=== PATIENT | female | born 1990 | race Caucasian/White ===

== ENCOUNTER 2016-06-22 18:17 | Inpatient (IN) | payer OTHER ==
[~2016-06-22] VITALS: Ht 157.5 cm; Wt 67.7 kg
[~2016-06-22 18:17] MED LIST: ETOMIDATE 20 MG INJ ONE; ROCURONIUM 50 MG INJ ONE
[2016-06-22 22:26] VITALS: PULSE 86
[2016-06-22 22:40] VITALS: Ht 157.5 cm; Wt 67.7 kg
[2016-06-22] MEDS ORDERED: DEXTROSE 50% 50 ML SYRINGE ONE (22:49)
[2016-06-22 23:30] VITALS: BP 134/89; PULSE 79; RESP 18
[2016-06-23] VITALS (52 sets, daily range): BP systolic 0–182; BP diastolic 10–122; PULSE 0–142; RESP 12–26
[2016-06-23] MEDS ORDERED: morphine 4 MG/ML VIAL IV PRN (01:00)
[2016-06-23] MEDS ORDERED: ONDANSETRON 4 MG INJ IV PRN ×2 (01:00→09:30)
[2016-06-23] MEDS ORDERED: DEXTROSE 5%-0.9% NACL 1,000 ML IV SCH ×2 (01:00→09:00)
[2016-06-23] MEDS ORDERED: ACETAMINOPHEN 325 MG TAB PO PRN ×2 (01:00→09:30)
[2016-06-23] MEDS ORDERED: DEXTROSE 50% 50 ML SYRINGE ONE (04:18)
[2016-06-23] MEDS ORDERED: LIDOCAINE 1% (MDV) 20 ML INJ SC ONE (06:00)
[2016-06-23] MEDS ORDERED: PANTOPRAZOLE 40 MG INJ IV SCH (06:00)
[2016-06-23] MEDS ORDERED: DEXTROSE 50% 50 ML SYRINGE IV PRN ×3 (06:00→17:30)
[2016-06-23 06:35] LABS: ADD SCAN DIFF NO
[2016-06-23 06:39] LABS: ABNORMAL IP MESSAGE 1; HEMATOCRIT 49.6 % (37.0-47.0); HEMOGLOBIN 15.5 g/dl (12.0-16.0); MEAN CORPUSCULAR HEMOGLOBIN 31.3 pg (29.0-33.0); MEAN CORPUSCULAR HGB CONC 31.3 g/dl (32.0-37.0); MEAN PLATELET VOLUME 9.2 fl (7.4-10.4); RED BLOOD COUNT 4.96 10^6/ul (4.20-5.40); RED CELL DISTRIBUTION WIDTH 12.3 % (11.5-14.5); WHITE BLOOD COUNT 12.2 10^3/ul (4.8-10.8)
[2016-06-23 06:52] LABS: PLATELET COUNT 25 10^3/UL (140-415)
[2016-06-23 07:00] LABS: CALCIUM 7.2 mg/dl (8.4-10.2); CHOL/HDL RATIO 10.6 RATIO; CREATININE 3.45 mg/dl (0.44-1.00)
[2016-06-23 07:15] LABS: POTASSIUM 6.9 mmol/L (3.5-5.1)
--- NOTE | 2016-06-23 07:16 | RADRPT ---
PROCEDURE: Abdominal ultrasound. CLINICAL INDICATION: Abdominal pain. TECHNIQUE: Multiple real-time images were acquired of the patient's abdomen and retroperitoneum u tilizing a high resolution transducer. COMPARISON: None FINDINGS: The liver demonstrates normal echogenicity and size measuring 16.2 cm. No focal hepatic lesion is id entified. No gallstones are identified within the gallbladder. There is no pericholecystic fluid or gallbladder wall thickening. The common bile duct measures 4.1 mm in maximal dimension. The pancreas and main portal vein are obscured by overlying bowel gas. The spleen is enlarged measuring 13.5 cm. No free fluid is identified. The kidneys are normal size, and demonstrate normal echogenicity and morphology. The right kidney me asures 10.1 x 5.0 cm. The left kidney measures 10.4 x 4.9 cm. There is no dilatation of the pelvical iceal systems bilaterally. There are no perinephric fluid collections. There are no areas of increa sed echogenicity to suggest nephrolithiasis. The visualized abdominal aorta and vena cava are unrema rkable. IMPRESSION: Pancreas obscured by overlying bowel gas. Mild splenomegaly. Otherwise unremarkable abdominal ultrasound. .Laurent Garcia MD, MD Date Time Electronically viewed and signed by .Laurent Garcia MD, MD on 06/23/2016 07:16 .T/
[2016-06-23 07:30] LABS: THYROID STIMULATING HORMONE 12.8 MIU/L (0.465-4.680); TRIIODOTHYRONINE 0.89 ng/ml (0.97-1.69)
[2016-06-23] MEDS ORDERED: NA BICARBONATE 8.4% 50 ML SYG IV STA ×3 (07:39→10:45)
[2016-06-23] MEDS ORDERED: NA BICARBONATE 8.4% 50 ML SYG ONE ×2 (07:48→12:00)
[2016-06-23] MEDS ORDERED: CALCIUM GLUCONATE 10% 1 GM in SOD CHLORIDE 0.9% 100 ML IVPB ONE ×2 (08:00→14:00)
[2016-06-23] MEDS: NA BICARBONATE 8.4% 50 ML SYG IV STA ×2 (08:00→09:00)
[2016-06-23] MEDS ORDERED: DEXTROSE 10% 1,000 ML IV STA (08:05)
[2016-06-23] MEDS ORDERED: ALBUTEROL 0.083% (NEB) 2.5 MG/3 ML AMP HHN SCH (08:30)
[2016-06-23] MEDS ORDERED: NORepinephrine 8MG/250 ML (PMX 250 ML IV SCH (08:30)
[2016-06-23] MEDS ORDERED: NORepinephrine 8MG/250 ML (PMX 250 ML ONE (08:32)
[2016-06-23 08:35] LABS: AADO2 Arterial 371.4 mmHg (7.0-24.0); Allen Test ACCEPTAB; Arterial Base Excess -18.1 mmol/L (-3.0-3); Arterial COHb 0.3 % (0.0-3.0); Arterial Fraction of Oxyhgb 98.8 % (93.0-99.0); Arterial HCO3 6.9 mmol/L (22.0-26.0); Arterial MetHb 0.3 % (0.0-1.5); Arterial Total Hemglobin 13.2 g/dl (12.0-18.0); MODE MASK - NRB
[2016-06-23] MEDS ORDERED: NA POLYST SULFON 15 GM/60 ML BTL PO STA (08:50)
[2016-06-23] MEDS ORDERED: PROPOFOL 0 ML ONE (08:58)
[2016-06-23] MEDS ORDERED: NA BICARBONATE 8.4% 50 ML SYG IV SCH (09:00)
[2016-06-23] MEDS ORDERED: METHYLPREDNISOLONE 40 MG INJ IV SCH (09:00)
[2016-06-23] MEDS ORDERED: PHENYLephrine 20MG IN 250 ML 250 ML ONE ×2 (09:10→10:53)
--- NOTE | 2016-06-23 09:11 | ERD ---
DATE OF SERVICE: ADDENDUM This is a 26-year-old female who had been admitted to the intensive care unit. I was called to the bedside due to severe respiratory distress and consulted for an intubation due to impending airway f ailure. When I arrived at the bedside, the patient had agonal respirations, was aphasic and hypoxic at 89%. Bag mask ventilation was initiated as well as RSI. Given that the patient had renal failu re, she was given rocuronium as a paralytic and prior to paralysis the patient was sedated with etom idate. A 7.50 endotracheal tube was seen and passed going through the cords by myself. The tube wa s confirmed in good placement with equal and symmetrical breath sounds heard bilaterally, condensati on seen within the tube. Post-chest radiograph will be ordered and reviewed by myself. Dictated By: ROLO MORGAN MD CP/NTS Conf#: [id number] DID#: [id number]
[2016-06-23] MEDS: PHENYLephrine 20MG IN 250 ML 250 ML IV SCH ×2 (09:20→11:13)
[2016-06-23] MEDS ORDERED: MIDAZOLAM (DRIP) 50 mg/50 mL 50 ML IV SCH ×2 (09:30)
[2016-06-23] MEDS ORDERED: DOCUSATE SODIUM 100 MG CAP PO PRN (09:30)
[2016-06-23] MEDS ORDERED: EPINEPHrine 0.1 MG/ML SYG ONE ×2 (09:59→19:44)
[2016-06-23] MEDS ORDERED: CEFTRIAXONE 1 GM/50 ML (PMX) 50 ML IVPB SCH (10:00)
[2016-06-23 10:08] LABS: BASOPHIL # 0.1 10^3/ul (0.0-0.1); LYMPHOCYTES # 2.2 10^3/ul (0.8-2.9); MONOCYTE # 0.9 10^3/ul (0.3-0.9); MYELOCYTES # 0.1; NEUTROPHIL # 7.8 10^3/ul (1.6-7.5)
[2016-06-23 10:09] LABS: POLYCHROMASIA OCCASIONAL
[2016-06-23 10:10] LABS: PLATELET ESTIMATE PLT APPEAR DECREASED
--- NOTE | 2016-06-23 10:11 | RADRPT ---
Vent Rate: 96 bpm RR Interval: 0 msec SC Interval: 168 msec QRS Duration: 82 msec QT Interval: 346 msec QTC Interval: 437 msec P-R-T Brandt: 49 - 157 - 18 degrees Normal sinus rhythm Possible Right ventricular hypertrophy Possible Lateral infarct , age undetermined Abnormal ECG Electronically Signed By: Tello Wang [id number]
[2016-06-23 10:14] LABS: ADD SCAN DIFF NO
[2016-06-23 10:17] LABS: ABNORMAL IP MESSAGE 1; HEMATOCRIT 32.8 % (37.0-47.0); HEMOGLOBIN 9.9 g/dl (12.0-16.0); MEAN CORPUSCULAR HEMOGLOBIN 31.3 pg (29.0-33.0); MEAN CORPUSCULAR HGB CONC 30.2 g/dl (32.0-37.0); MEAN CORPUSCULAR VOLUME 103.8 fl (82.0-101.0); MEAN PLATELET VOLUME 9.9 fl (7.4-10.4); RED BLOOD COUNT 3.16 10^6/ul (4.20-5.40); RED CELL DISTRIBUTION WIDTH 12.4 % (11.5-14.5); WHITE BLOOD COUNT 5.8 10^3/ul (4.8-10.8)
[2016-06-23 10:21] LABS: PLATELET COUNT 21 10^3/UL (140-415)
[2016-06-23] MEDS ORDERED: ALBUMIN HUMAN 5% 250 ML ONE (10:25)
[2016-06-23] MEDS ORDERED: ALBUMIN HUMAN 5% 250 ML IV ONE (10:30)
[2016-06-23] MEDS ORDERED: SOD CHLORIDE 0.9% 1,000 ML IV ONE ×2 (10:30→14:00)
[2016-06-23] MEDS ORDERED: VASOPRESSIN 60 UNIT in DEXTROSE 5% 57 ML IV SCH (10:30)
[2016-06-23] MEDS: SODIUM BICARBONATE (IV ADD) 100 MEQ in DEXTROSE 5%-0.45% NACL 1,000 ML IV SCH ×2 (10:32→18:01)
[2016-06-23 10:38] LABS: CK-MB 3.62 ng/ml (0.0-2.4)
[2016-06-23 10:40] LABS: AADO2 Arterial 574.9 mmHg (7.0-24.0); Allen Test ACCEPTAB; Arterial Base Excess -14.7 mmol/L (-3.0-3); Arterial COHb 0.2 % (0.0-3.0); Arterial Fraction of Oxyhgb 93.8 % (93.0-99.0); Arterial HCO3 13.6 mmol/L (22.0-26.0); Arterial MetHb 0.3 % (0.0-1.5); Arterial Total Hemglobin 10.6 g/dl (12.0-18.0); MODE VENT - AC
[2016-06-23 10:42] LABS: TROPONIN-I 0.324 ng/ml (0.00-0.12)
--- NOTE | 2016-06-23 10:42 | HP ---
DATE OF ADMISSION: 06/22/2016 HISTORY OF PRESENT ILLNESS: The patient is a young female with history of Friedreich's ataxia, hist ory of diabetes mellitus, history of proteinuria. She was taken to [facility] for abdominal pain. The patient there was stabilized and per team, the patient was stable to be tra nsferred. The patient presented to this hospital and noted to have stable vital signs. The patient was receiving IV fluid. Also noted to have small blood in the urine due to Garcia trauma. The guzman ent has episodes of hypoglycemia, last night received D50 and IV fluid and patient's laboratory data this morning shows potassium 6.9. The patient's orders were given to give D50 as well as to contin ue with sodium bicarbonate, calcium gluconate, albuterol breathing treatment. The patient's family is at bedside who gives history of Friedreich's ataxia. The patient has diabetes mellitus. Has no kidney problems except protein in the urine. Hemoglobin A1c reported from [facility] s 8.3. The patient had a CT scan of the abdomen and pelvis without contrast performed, shows pelvic organs are normal. Pelvic sidewalls and inguinal regions are clear, no pelvic mass, lymphadenopath y or free fluid is seen. No acute inflammation is seen. Urinary bladder is within normal limits. Small bilateral pleural effusions. Small volume of ascites. The patient's liver is normal. The pa tient's spleen is normal. Stomach is unremarkable. The patient has no evidence of common bile duct dilatation, adrenal glands are symmetric and normal, kidneys are symmetric, unremarkable. No renal calculus, obstructive uropathy or mass lesion. Small and large bowel and mesentery are unremarkabl e. The patient's BNP 518. Beta hCG is negative. The patient had an EKG, sinus tachycardia this mo rning. The patient is hepatitis A negative, negative for hepatitis B core antibody, patient's hepat itis B surface antigen is negative, hepatitis C antibody is negative. The patient has a lipase 129. The patient is going to be monitored for further management. PAST MEDICAL HISTORY: Diabetes, Friedreich's ataxia. ALLERGY HISTORY: PER FAMILY IS NEGATIVE. FAMILY HISTORY: Negative. SOCIAL HISTORY: Negative. MEDICATIONS: 1. Insulin. 2. Metformin. REVIEW OF SYSTEMS: Cannot be obtained. PHYSICAL EXAMINATION: GENERAL: The patient is currently intubated. VITAL SIGNS: Pulse 90, blood pressure systolic 70s. HEENT: The patient's pupils are equal, reactive to light. NECK: Supple. No JVD. LUNGS: Clear. CARDIOVASCULAR: S1, S2 normal. ABDOMEN: Soft, nontender, slightly distended. EXTREMITIES: No cyanosis, clubbing. Edema positive. LABORATORY DATA: WBC 10.7, hematocrit 48.4, platelet count of 167. The [facility] Sodium 135, potassium 4.3, CO2 of 18, BUN 28, creatinine 2.3. The patie nt has albumin 2.8, ALT 1409, AST 2068. The patient's urine glucose 500, protein 500. The patient has a specific gravity 1.023. Gallbladder appears partially contracted, but otherwise within normal limits. Ascites seen and phle gmon was not identified. IMPRESSION: 1. The patient has acute respiratory failure, hyperkalemia, metabolic acidosis and possibly shock l iver. Rule out patient has sepsis, rule out underlying lactic acidosis. 2. The patient has cardiac arrhythmia, positive troponin. 3. Friedreich's ataxia. 4. The patient has hypoglycemia. PLAN: At this point is to hemodynamically support this patient with IV fluid. Correct hyperkalemia with Kayexalate. Calcium gluconate and insulin. GI consultation. The patient will have cardiolog y consultation, pulmonary consultation. The patient will also have stat electrolytes obtained. Ord ers were done. Dictated By: BREE KIRK/YOSEPH Conf#: [id number] DID#: [id number]
--- NOTE | 2016-06-23 10:53 | RADRPT ---
PROCEDURE: XR Chest AP portable CLINICAL INDICATION: Post intubation TECHNIQUE: An AP portable radiograph of the chest was submitted. COMPARISON: None. FINDINGS: Support Hardware: The patient has been intubated with the tube tip is down the right mainstem bronch us and should be repositioned. An NG tube has been placed with the tip just distal to the gastroeso phageal junction. Cardiovascular: The cardiovascular silhouette appears unremarkable the mediastinum is shifted leftwa rd and the piriform plantar vasculature is seen on the right appears unremarkable. Lung Moser: There is atelectasis of the left lung. There is slight interstitial prominence within the right perihilar region and lower lung zone. Pleural Spaces: No pneumothorax or pleural effusion is identified. Osseous Structures: There is a moderate dextroscoliotic curve to the thoracic spine. Soft Tissues: The soft tissues appear unremarkable. IMPRESSION: 1. Endotracheal tube down right mainstem bronchus with atelectasis of the left lung. 2. The NG tube tip is just distal to the gastroesophageal junction and could be advanced slightly f urther. 3. Mild interstitial infiltrate in right perihilar region and right lower lung zone. 4. Moderate dextroscoliotic curve to the thoracic spine. Findings of mal-positioned endotracheal tube down right mainstem bronchus were telephoned by Zafar Ragsdale MD to RICH Garcia on 06/23/2016 at 1030 hours. Physician Peng Date Time Electronically viewed and signed by Physician Peng on 06/23/2016 10:53 /
[2016-06-23] MEDS ORDERED: LEVOTHYROXINE 25 MCG TAB PO SCH (11:00)
--- NOTE | 2016-06-23 11:06 | CONS ---
Date/Time of Note Date/Time of Note DATE: 06/23/16 TIME: 11:01 Assessment/Plan Assessment/Plan Additional Assessment/Plan Chest x-ray was reviewed from today after intubation which is showing endotracheal tube in the right mainstem bronchus, the tube has been withdrawn since then. CT abdomen imaging report was reviewed from the transferring hospital which is essentially unremarkable. Assessment recommendations; next 1. Patient admitted for acute renal failure with hyperkalemia, status post CPR. 2. Friedreich's ataxia. 3. Metabolic acidosis. 4. Severe hypotension. Continue current supportive care. Continue current ventilator settings. She is to be given another fluid bolus of a liter of normal saline. Continue pressor support. Obtain a follow-up ABG in about 2 hours time. Patient will be hemodialyzed. Continue Rocephin for now. Prognosis is guarded. Consultation Date/Type/Reason Admit Date/Time Jun 22, 2016 at 22:21 Date of Consultation: Jun 23, 2016 Type of Consultation: Pulmonary/critical care Reason for Consultation Pulmonary consultation requested for respiratory failure. Patient status post CPR. History presenting; patient is a 26-year-old white girl who came into the hospital this morning with complaints of not feeling well. Upon evaluation patient was found to be in acute renal failure with hyperkalemia. She was initially admitted to medical floor with the patient became obtunded and then had to be transferred to ICU where the patient had a cardiac arrest event, she underwent a CPR lasting approximately 10 minutes with revival of vital signs. History of severe pain from medical records. Past medical history; next 1. Patient with history of diabetes. 2. History of proteinuria. 3. History of Friedreich's ataxia. Medications; reviewed. Allergies; are none. Social history; no history of any smoking alcohol or drug abuse. Family history; patient does have a supportive family. Occupational history; patient is on disability. Review of systems; unable to be obtained. Social History Smoking Status: Never smoker Exam/Review of Systems Vital Signs Vitals Vital Signs Date Time Temp Pulse Resp B/P Pulse Ox O2 Delivery O2 Flow Rate FiO2 06/23/16 08:15 98 06/23/16 07:55 97.5 20 182/122 98 06/23/16 07:26 2.0 06/23/16 04:36 Nasal Cannula Intake and Output 06/22/16 06/22/16 06/23/16 15:00 23:00 07:00 Output Total 0 ml Balance 0 ml Exam HEENT exam is; supple neck, no JVD. No lymphadenopathy. Midline trachea. Patient has good dentition. Orally intubated. It was a small bilaterally. No neck masses. No lymphadenopathy. No thyromegaly. Chest examined; clear to auscultation. S1-S2 audible, no murmurs. Tachycardic. Regular rhythm. Abdomen exam is; soft, protuberant. No organomegaly. Bowel sounds are sluggish. Extremity exam is; no peripheral edema. [employer] examination; patient currently is unresponsive. Results Result Diagram: 06/23/16 1008 06/23/16 0559 Results 24 hrs Laboratory Tests Test 06/22/16 22:47 06/22/16 23:32 06/23/16 04:14 06/23/16 05:26 Bedside Glucose 56 L 144 42 *L 157 Test 06/23/16 05:59 06/23/16 07:49 06/23/16 08:29 06/23/16 09:05 White Blood Count 12.2 H Red Blood Count 4.96 Hemoglobin 15.5 Hematocrit 49.6 H Mean Corpuscular Volume 100.0 Mean Corpuscular Hemoglobin 31.3 Mean Corpuscular Hemoglobin Concent 31.3 L Red Cell Distribution Width 12.3 Platelet Count 25 *L Mean Platelet Volume 9.2 Neutrophils % 64.0 Band Neutrophils % 5.0 Lymphocytes % 18.0 Monocytes % 7.0 Eosinophils % Basophils % 1.0 Metamyelocytes % 4.0 H Myelocytes % 1.0 H Nucleated Red Blood Cells % 17.0 H Neutrophils # 7.8 H Lymphocytes # 2.2 Monocytes # 0.9 Eosinophils # Basophils # 0.1 Metamyelocytes # 0.5 Myelocytes # 0.1 Platelet Estimate PLT APPEAR DECREASED Giant Platelets RARE Polychromasia OCCASIONAL Sodium Level 130 L Potassium Level 6.9 *H Chloride Level 101 Carbon Dioxide Level 11 L Anion Gap 25 H Blood Urea Nitrogen 32 H Creatinine 3.45 H Glucose Level 156 Calcium Level 7.2 L Troponin I 0.488 *H Triglycerides Level 217 H Cholesterol Level 106 LDL Cholesterol, Calculated 53 HDL Cholesterol 10 L Cholesterol/HDL Ratio 10.6 Thyroid Stimulating Hormone (TSH) 12.800 H Thyroxine (T4) 6.5 Total Triiodothyronine 0.89 L Bedside Glucose 128 Blood Gas Specimen Source Blood arterial Blood arterial Arterial Blood Date Drawn 06/23/2016 8:20:03 AM 06/23/2016 10:20:20 AM Arterial Blood pH (Temp corrected) 7.238 *L 7.137 *L Arterial Blood pCO2 (Temp correct) 16.5 L 41.1 Arterial Blood pO2 (Temp corrected) 325.1 H 97.0 Arterial Blood HCO3 6.9 *L 13.6 L Arterial Blood Base Excess -18.1 L -14.7 L Arterial Blood Oxygen Saturation 99.4 H 94.3 L Zoran Test ACCEPTAB ACCEPTAB Arterial Blood Gas Puncture Site Right Radial Right Radial Arterial Blood Carboxyhemoglobin 0.3 0.2 Arterial Blood Methemoglobin 0.3 0.3 Blood Gas A-a O2 Differential 371.4 H 574.9 H Oxyhemoglobin Percent 98.8 93.8 Total Hemoglobin 13.2 10.6 L Blood Gas Temperature 37.0 37.0 Blood Gas Modality MASK - NRB VENT - AC FiO2 100.0 100.0 Blood Gas Critical Value Read Back E LURDES BRINK RN Blood Gas Notified Whom DEEPA ARENAS Blood Gas Notified Time 06/23/2016 8:32:39 AM 06/23/2016 10:40:34 AM Blood Gas Respiration Rate 16.0 Blood Gas Actual Respiration Rate 16 Blood Gas Tidal Volume 500.0 Blood Gas Low PEEP Setting 5.0 Test 06/23/16 09:58 06/23/16 10:08 Bedside Glucose 173 White Blood Count 5.8 # Red Blood Count 3.16 #L Hemoglobin 9.9 #L Hematocrit 32.8 #L Mean Corpuscular Volume 103.8 H Mean Corpuscular Hemoglobin 31.3 Mean Corpuscular Hemoglobin Concent 30.2 L Red Cell Distribution Width 12.4 Platelet Count 21 *L Mean Platelet Volume 9.9 Neutrophils % Lymphocytes % Monocytes % Eosinophils % Neutrophils # Lymphocytes # Monocytes # Eosinophils # Lactic Acid Level 15.7 *H Creatine Kinase 253 H Creatine Kinase Index 1.4 Creatinine Kinase MB (Mass) 3.62 H Troponin I 0.324 *H Medications Medications Current Medications Morphine Sulfate (morphine) 4 mg Q4H PRN IV PAIN; Start 06/23/16 at 01:00 Ondansetron HCl (Zofran Inj) 4 mg Q6H PRN IV NAUSEA AND/OR VOMITING; Start 02/27 at 01:00 Carvedilol (Coreg) 6.25 mg BID PO ; Start 06/23/16 at 09:00; Status Future Hold Pantoprazole (Protonix Iv) 40 mg DAILY@06 IV Last administered on 06/23/16 06: 19; Admin Dose 40 MG; Start 06/23/16 at 06:00 Methylprednisolone Sodium Succinate (Solu-Medrol) 40 mg Q12 IV ; Start 06/23/16 at 09:00 Dextrose (D50w Syringe) 50 ml PRN PRN IV hypoglycemia; Start 06/23/16 at 06:00 Sodium Bicarbonate 50 ml 50 ml BID IV Last administered on 06/23/16 10:46; Admin Dose 50 ML; Start 06/23/16 at 09:00; Stop 06/24/16 at 09:01 Norepinephrine 16 mg/Dextrose 500 ml @ 1.87 mls/hr TITRATE IV ; Start 06/23/16 at 09:00 Sodium Bicarbonate 100 meq/Dextrose/ Sodium Chloride 1,100 ml @ 200 mls/hr Q5H30M IV Last administered on 06/23/16 10:32; Admin Dose 200 MLS/HR; Start at 10:00 Midazolam HCl 50 ml @ 1 mls/hr TITRATE IV ; Start 06/23/16 at 09:30 Midazolam HCl (Versed) 50 ml @ 1 mls/hr TITRATE IV ; Start 06/23/16 at 09:30 Acetaminophen (Tylenol Tab) 650 mg Q6H PRN PO PAIN LEVEL 1-3 OR FEVER; Start at 09:30 Docusate Sodium 100 mg 100 mg Q12H PRN PO CONSTIPATION; Start 06/23/16 at 09:30 Ceftriaxone Sodium (Rocephin) 50 ml @ 100 mls/hr Q24H IVPB ; Start 06/23/16 at 10:00 Levothyroxine Sodium (Synthroid) 25 mcg DAILY@06 PO ; Start 06/23/16 at 11:00 Hydrocortisone 100 mg 100 mg Q8 IV ; Start 06/23/16 at 10:00 Vasopressin 60 unit/Dextrose 60 ml @ 0 mls/hr Q12H IV ; Start 06/23/16 at 10:30 Sodium Chloride 1,000 ml @ 1,000 mls/hr Q1H ONCE IV ; Start 06/23/16 at 10:30; Stop 06/23/16 at 11:29 Albumin Human 250 ml @ 250 mls/hr ONCE ONCE IV ; Start 06/23/16 at 10:30; Stop 06/23/16 at 11:29 Phenylephrine HCl 250 ml @ 75 mls/hr TITRATE IV ; Start 06/23/16 at 11:00; Status UNV Phenylephrine HCl/ Dextrose (Erick-Syneph/D5W) 500 ml @ 37.5 mls/hr TITRATE IV ; Start 06/23/16 at 11:00 GARY CHIN Jun 23, 2016 11:06
[2016-06-23] MEDS: HYDROCORTISONE 100 MG INJ IV SCH ×2 (11:14→16:19)
[2016-06-23 11:19] LABS: ALBUMIN 1.6 g/dl (3.3-4.9)
[2016-06-23 11:22] LABS: ALBUMIN/GLOBULIN RATIO 0.84; BILIRUBIN,DIRECT 0.2 mg/dl (0.00-0.20); BILIRUBIN,INDIRECT 1.1 mg/dl (0-1.1); BILIRUBIN,TOTAL 1.3 mg/dl (0.2-1.3); CREATININE 3.43 mg/dl (0.44-1.00); TOTAL PROTEIN 3.5 g/dl (6.1-8.1)
[2016-06-23 11:23] LABS: CALCIUM 8.3 mg/dl (8.4-10.2)
[2016-06-23 11:25] LABS: BURR CELLS FEW; LYMPHOCYTES # 1.3 10^3/ul (0.8-2.9); MONOCYTE # 0.1 10^3/ul (0.3-0.9); MYELOCYTES # 0.1; NEUTROPHIL # 3.3 10^3/ul (1.6-7.5)
[2016-06-23] MEDS: PHENYLephrine 80 MG in DEXTROSE 5% 492 ML IV SCH ×2 (11:30→16:15)
[2016-06-23 11:34] LABS: POTASSIUM 6.8 mmol/L (3.5-5.1)
[2016-06-23] MEDS ORDERED: CA CHLORIDE (GM) 10% 10 ML INJ ONE (12:00)
[2016-06-23] MEDS ORDERED: EPINEPHrine 100 MCG/10 ML SYG IV ONE (12:00)
[2016-06-23] MEDS ORDERED: DEXTROSE 50% 50 ML SYRINGE IV ONE ×2 (12:30→13:00)
[2016-06-23] MEDS: ACCU-CHEK XX SCH ×2 (12:46→17:00)
[2016-06-23] MEDS ORDERED: DOPamine 1.6 MG/ML D5W 250 ML IV SCH (13:00)
[2016-06-23] MEDS ORDERED: DOPamine-D5W 1.6 MG/ML 250 ML IV SCH (13:00)
[2016-06-23] MEDS ORDERED: INSULIN REGULAR 10 ML INJ IV ONE (13:00)
[2016-06-23] MEDS ORDERED: ALBUTEROL/IPRATROPIUM (NEB) 3 ML AMP NEB SCH (13:00)
--- NOTE | 2016-06-23 14:36 | CONS ---
DATE OF ADMISSION: 06/22/2016 DATE OF CONSULTATION: 06/23/2016 CARDIOLOGY CONSULTATION REASON FOR CONSULTATION: Hypotension, shock. REQUESTING PHYSICIAN: Capo Garcia MD HISTORY OF PRESENT ILLNESS: Ms. Bocanegra is a 26-year-old female with a history of Friedreich's atax ia, diabetes mellitus who initially presented to an outside hospital with complaints of abdominal pa in at an outside hospital. Upon arrival, temperature 97.2, blood pressure 143/67, pulse 64, respira tory rate 16, saturating 99% on June 20. The patient's labs notable for white count 10.7, hemoglo bin 15.3, platelet count 167. Sodium 135, potassium 4.3, creatinine 2.3, BUN 28, albumin of 2.8, AL T 1409, AST 2068. BNP of 567. Patient underwent abdominal ultrasound revealing gallbladder partial ly contracted, ascites. The patient is additionally noted to have some telemetry strips in the chapito t revealing episode of SVT at a rate of 170, short and self-limited, appears to be. The patient add itionally underwent abdominopelvic CT revealing small bilateral pleural effusion and small volume as cites. The patient thereafter stabilized and transferred to [facility] due to ins urance reasons. Initially upon arrival, temperature 97.6, blood pressure 134/89, pulse 79, respirat ions 18, saturating 95%. The patient's labs revealed a white count 12.2, hemoglobin 15.5, platelet count of 25, a glucose of 56. Sodium 130, potassium 6.9, creatinine 3.45, BUN of 32, LDL 53, HDL 10 . Troponin positive at 0.488. ABG revealing a pH of 7.238, a pO2 of 335, a pCO2 of 16. The patien t had a chest x-ray that revealed endotracheal tube down right mainstem bronchus, atelectasis of the left lung, mild interstitial infiltrate in right perihilar region. Abdominal ultrasound revealed a pack obscured by overlying bowel gas, mild splenomegaly. The patient's electrocardiogram revealed normal sinus rhythm, rate 96 with a right superior axis deviation and nonspecific ST-T abnormalities diffusely. The patient subsequently has been admitted, and since admit has had rapid deterioration requiring transfer to ICU and subsequently suffered a pulseless electrical activity code requiring ACLS protocol with return of a perfusing rhythm. The patient now remains in the ICU on maximum dose of Erick-Synephrine, maximum dose of Levophed, and is initiated on vasopressin. PAST MEDICAL HISTORY: As above in HPI. MEDICATIONS CURRENTLY IN HOSPITAL: 1. Kayexalate 30 grams q.4h. 2. DuoNebs. 3. Synthroid 25 mcg daily. 4. Phenylephrine. 5. Vasopressin. 6. Sodium bicarbonate. 7. Ceftriaxone IV. 8. Hydrocortisone 100 mg q.8h. 9. Levophed IV. 10. Protonix 40 mg IV daily. 11. Morphine p.r.n. 12. Zofran p.r.n. 13. Now she started on dopamine. ALLERGIES: NO KNOWN DRUG ALLERGIES. SOCIAL HISTORY: No tobacco, ETOH, or illicit drug use. FAMILY HISTORY: No history of sudden cardiac or early CAD. REVIEW OF SYSTEMS: As above in HPI. CONSTITUTIONAL: No fevers, chills. PULMONARY: Intubated, in respiratory failure. NECK: JVP of approximately 9 cm water. CHEST: Upper airway sounds, no rhonchorous sounds. HEART: Tachycardic, regular rhythm, normal S1, S2, I/ systolic murmur. ABDOMEN: Distended, mildly tense. EXTREMITIES: Positive edema, 1+ pulses bilaterally posterior tibial. LABORATORY DATA: As above in HPI with most recently from today, sodium 139, potassium 6.8, creatini ne of 3.43, BUN of 32. Troponin 0.324, down from 0.488. White blood cell count 5.8, hemoglobin 9. 9, platelet count of 21. IMAGING STUDIES: As above in HPI. No further imaging studies for my review at this time. ECG: As above in HPI. No further electrocardiograms for my review at this time. IMPRESSION: 1. Positive troponin, likely type 2 infarct in the setting of increased demand, hypotension, sepsis , renal failure. 2. Hypotension/shock, likely septic. 3. Abnormal electrocardiogram, assess for acute coronary syndrome. 4. Tachycardia consistent with sinus tachycardia at this time, likely triggered by underlying infec tion and multiple pressure support, low blood pressure. 5. Renal failure. 6. Hyperkalemia. 7. Ascites. 8. History of Friedreich's ataxia. 9. Hypothyroidism. 10. Anemia. 11. Thrombocytopenia, severe. 12. Acidosis, worsening. RECOMMENDATIONS: 1. At this time, would maintain. The patient on ICU and telemetry monitoring. 2. Would likely had additional pressure at this time, dopamine, and continue the patient's Levophed , vasopressor, and Erick-Synephrine. 3. Would continue to attempt to correct the patient's acidosis and improve efficacy of the patient' s pressor support as possible with bicarbonate drip. 4. Continue to attempt to treat the patient's hyperkalemia with Kayexalate with probable need for d ialysis if the patient is able to tolerate this in the setting of multiple pressures and hypotension at this time. 5. Consider transfusion of platelets and watch for any spontaneous bleeding. 6. Continue the patient's broad-spectrum antibiotics and follow up all culture data. 7. Prognosis guarded. 8. Check a 2-D echo to further assess this patient's ejection fraction, wall motion, or any major v alve abnormalities that may be associated with the patient's hypotension. Thank you for allowing me to take part in the care of this patient. I will continue to follow along very closely with you. Further recommendations will be made as the patient progresses through her inpatient hospital clinical course. Dictated By: USHA FIGUEROA/YOSEPH Conf#: [id number] DID#: [id number] CC: CAPO GARCIA MD;*End*
--- NOTE | 2016-06-23 14:48 | RADRPT ---
Echocardiogram Report Patient Name: MAC EWBB Gender: Female Date: 1990 Study Date: 23-Jun-2016 Tin Flopper: Nicolette Roach RDCS Location: 105 Ref. Physician: BREE GARCIA Quality: Adequate Procedures: Transthoracic echocardiogram with complete 2D, M-Mode, and doppler examination. Indications: Congestive Heart Failure. 2D/M Mode Doppler Measurement Value Normal Ranges Measurement Value Normal Ranges LVIDd 2D 3.5 3.5 - 5.6 cm AV Peak Jon 0.8 m/sec LVIDs 2D 2.8 2.1 - 4.1 cm AV Peak PG 3.0 mmHg FS 2D 21.2 % LVOT Peak Jon 0.5 m/sec LVPWd 2D 1.4 0.6 - 1.1 cm LVOT Peak PG 1.0 mmHg IVSd 2D 1.4 0.6 - 1.1 cm TR Peak Jon 2.5 m/sec IVS/LVPW 2D 1.0 TR Peak PG 26.0 mmHg AoR Diam 2D 2.4 2.0 - 3.7 cm RVSP 34.0 mmHg LA/Ao 2D 1 0 - 1 EDV 2D 44.4 cm3 ESV 2D 21.7 cm3 LA Dimen 2D 3.0 2.3 - 4.0 cm Findings Left Ventricle: Normal left ventricular cavity size. Moderate concentric left ventricular hypertrophy. Moderate global left ventricular systolic dysfunction. Ejection fraction is visually estimated at 30 %. Probable thrombus seen. Right Ventricle: Normal right ventricular size. Normal right ventricular systolic function. Left Atrium: The left atrium is normal in size. Right Atrium: The right atrium is normal in size. Mitral Valve: Normal appearance of the mitral valve. Mild mitral valve regurgitation. Aortic Valve: Normal appearance of the aortic valve. No significant aortic stenosis or insufficiency. Tricuspid Valve: Estimated peak PA systolic pressure 34 mmHg. There is mild to moderate tricuspid regurgitation. Pulmonic Valve: Pulmonic valve not well visualized. Pericardium: Small pericardial effusion. Aorta: Normal aortic root. IVC: Inferior vena cava without respiratory collapse, however, patient on ventilator. Conclusions Normal left ventricular cavity size. Moderate concentric left ventricular hypertrophy. Moderate global left ventricular systolic dysfunction. Ejection fraction is visually estimated at 30 %. Probable thrombus seen. Normal appearance of the mitral valve. Mild mitral valve regurgitation. Estimated peak PA systolic pressure 34 mmHg. There is mild to moderate tricuspid regurgitation. Electronically Signed By: Constantine Baez 23-Jun-2016 14:47:41 -0700 Patient Name: MAC WEBB Study Date: 23-Jun-2016 [id number]
[2016-06-23] MEDS ORDERED: NA POLYST SULFON 15 GM/60 ML BTL PO SCH (16:00)
--- NOTE | 2016-06-23 17:06 | CONS ---
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 Initially, she was admitted to the emergency room at [facility] complaining of abdominal pain and not feeling good. The patient was e valuated in the ER at [facility] where CAT scan was done. It was reported negative. No acute p athology. The patient's creatinine then was high at 2.8. BUN was 28. Platelet count was 167, and hemoglobin was 15.3. Liver functions were abnormal. SGOT 1409 and SGPT 2069 with BNP of 567. She underwent ultrasound of the abdomen which showed gallbladder which was contracted and mild ascites. The patient also had SVT then with a heart rate of 170, and once she was stable, for insurance purp ose, the patient was transferred to this facility for further management. Early in the morning, she was found to be hypoglycemic and was acidotic with high potassium. At that point, the patient was given dextrose and transferred to intensive care unit for further management. The patient was intub ated, and in the intensive care unit, she had a cardiac arrest in front of the staff, and CPR was co nducted for 10 minutes and pulse was revived. However, the patient has remained hypotensive ever si nce and has been on 3 pressor support. She also got empirical antibiotic called ____. The patient has got NG tube. She has got a coffee-ground colored material coming out. She has no bowel movemen t so far. I gathered all this information by reviewing the chart, from the staff, and also from the brother. The patient never had a history of GI bleeding. PAST MEDICAL HISTORY: 1. 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 2. History of diabetes mellitus. She was recently diagnosis. She was placed by primary MD on glip izide, but that was not given by the mother. MEDICATIONS IN THE HOSPITAL: She was given Kayexalate for her high potassium, started on Synthroid for hypothyroidism, and she is on pressure support, vasopressin, Levophed, and phenylephrine. The p atient also got hydrocortisone IV and is on ceftriaxone besides Protonix drip. ALLERGIES: NO KNOWN DRUG ALLERGIES. SOCIAL HISTORY: Does not smoke or drink. FAMILY HISTORY: Nothing contributory. REVIEW OF SYSTEMS: Unable to do it. All the information gathered from the brother. PHYSICAL EXAMINATION GENERAL: The patient is intubated. VITAL SIGNS: Blood pressure is low, around 50, on 3 pressor support. Heart rate is around 140 per minute, oxygen saturation is stable. She is on a vent with 100% oxygen. SKIN: Her color, lips look pale, fingers look pale. Hematocrit was reported 32, which appears to m e disproportionate to the color which I am observing. CARDIOVASCULAR: No murmur. LUNGS: No wheeze heard. ABDOMEN: Firm in consistency. Bowel sounds barely heard. EXTREMITIES: No edema. CENTRAL NERVOUS SYSTEM: The patient is comatose at this point. LABORATORY DATA: At 5:50 this morning, her potassium was 6.9, creatinine was 3.45, and glucose was 156. Glucose at 4:00 was 42, and they brought it to normal range. However, at 10:00 in the morning , potassium was 6.8, creatinine was 3.43, and after getting sodium bicarbonate and other treatment, the potassium came down to 5.5. Glucose is now 342. Troponin is mildly elevated to 0.874. IMPRESSION: 1. Platelet count is low, most probably septic shock. Etiology is unclear. 2. Hypotension. 3. Renal failure. 4. Hyperkalemia. 5. Hypoglycemia on the floor. 6. Respiratory failure. 7. High troponin. 8. Maybe upper GI bleeding, coffee-ground colored material, though scanty, coming out through the N G tube. 9. Friedreich ataxia 10. History of diabetes mellitus. 11. Metabolic acidosis. 12. Severe thrombocytopenia. PLAN: To continue antibiotic as per the ID. All the supportive treatment. We will get abdominal s eries to make sure there is no free air. The KUB and the CAT scan at the other facility was normal, but clinical findings have changed now, and I want to make sure that there is no rupture of any vis cus. At this point, the patient is not a surgical candidate for anything. She needs to be resuscit ated and stabilized. I have discussed face to face with the brother also. I am going to send for a DIC panel and also stat CBC to make sure platelet is not dropping further and also make sure that h ematocrit is stable. Otherwise, we will have to transfuse patient both with platelet and with packe d cell RBC. Dictated By: MARICHUY HERNANDEZ/YOSEPH Conf#: [id number] DID#: [id number]
[2016-06-23 17:17] LABS: ADD SCAN DIFF NO
[2016-06-23] MEDS ORDERED: INSULIN HUMAN REGULAR 100 UNIT in SOD CHLORIDE 0.9% 99 ML IV SCH (17:30)
[2016-06-23] MEDS ORDERED: PHENYLephrine 80 MG in DEXTROSE 5% 242 ML IV SCH (17:30)
[2016-06-23] MEDS ORDERED: ACCU-CHEK XX SCH (17:30)
[2016-06-23] MEDS ORDERED: DOPamine 1,600 MG in DEXTROSE 5% 210 ML IV SCH (17:30)
[2016-06-23] MEDS ORDERED: SOD CHLORIDE 0.9% 500 ML IV ONE (17:30)
[2016-06-23] MEDS ORDERED: NORepinephrine 32 MG in DEXTROSE 5% 218 ML IV SCH (17:30)
[2016-06-23] MEDS ORDERED: DOPamine-D5W 1.6 MG/ML 250 ML ONE (18:21)
[2016-06-23 18:42] LABS: ABNORMAL IP MESSAGE 1; MEAN CORPUSCULAR HEMOGLOBIN 31.7 pg (29.0-33.0); MEAN CORPUSCULAR HGB CONC 24.5 g/dl (32.0-37.0); MEAN PLATELET VOLUME 10.9 fl (7.4-10.4); RED CELL DISTRIBUTION WIDTH 14.4 % (11.5-14.5)
[2016-06-23 18:44] LABS: RED BLOOD COUNT 0.41 10^6/ul (4.20-5.40)
[2016-06-23 18:48] LABS: MEAN CORPUSCULAR VOLUME 129.3 fl (82.0-101.0)
[2016-06-23 18:51] LABS: HEMATOCRIT 5.3 % (37.0-47.0)
[2016-06-23 19:04] LABS: ALBUMIN 1.1 g/dl (3.3-4.9); ALKALINE PHOSPHATASE 56 IU/L (42-121); ANION GAP 34 (8-16); BILIRUBIN,INDIRECT 0.5 mg/dl (0-1.1); BILIRUBIN,TOTAL 0.5 mg/dl (0.2-1.3); BLOOD UREA NITROGEN 26 mg/dl (7-20); CALCIUM 6.6 mg/dl (8.4-10.2); CHLORIDE 105 mmol/L (97-110); CREATININE 3.23 mg/dl (0.44-1.00); GLUCOSE 279 mg/dl (70-220); SODIUM 141 mmol/L (135-144); TOTAL PROTEIN 2.1 g/dl (6.1-8.1)
[2016-06-23 19:15] LABS: CARBON DIOXIDE 9 mmol/L (21-31)
[2016-06-23 19:32] LABS: PROTIME > 100.0 Sec (12.2-14.2)
[2016-06-23 19:33] LABS: INR > 6.00; PT RATIO > 6.0
[2016-06-23 19:35] LABS: FIBRINOGEN < 40.0 mg/dl (207-461); THROMBIN TIME > 100.0 SEC (13.8-19.1)
[2016-06-23 19:38] LABS: PARTIAL THROMBOPLASTIN TIME > 180.0 Sec (25.0-35.0)
[2016-06-23 19:45] LABS: ASPARTATE AMINO TRANSFERASE > 7500 IU/L (15-46)
--- NOTE | 2016-06-23 20:09 | QN ---
Documentation Comment I was called to the ICU for ISAC PERRY. The patient is a 26-year-old female who was admitted with acute renal failure, shortness of breath, abdominal pain. The patient had been intubated for respiratory failure, and was on multiple pressors. She remained hypotensive despite treatment. She had had a cardiac arrest with successful resuscitation in the morning. She was known to be hyperkalemic, but was unstable for dialysis and CRRT was not available. Should be given calcium gluconate 2. Cardiac arrest was PEA with bradycardia. On my arrival in the ICU, the patient had good quality chest compressions in progress , was being bagged via endotracheal tube. One amp of epinephrine had been administered prior to my arrival. A pulse and rhythm check was performed and showed asystole without pulse. Additional epinephrine, as well as sodium bicarbonate and calcium chloride were administered. Review of the patient's recent labs showed that she had a hemoglobin of 1.9 and platelets of 20. Blood transfusion was in progress. CPR was continued for a total of 6 cycles, with 5 amps of epinephrine, 2 amps of sodium bicarbonate, and 1 amp of calcium chloride administered. Ventilation and CPR were excellent quality throughout. At all pulse and rhythm checks, the patient was found to be asystole with extremely rare organized electrical activity, and without pulse. The patient was ultimately pronounced at 1947. Prior to pronouncing, I discussed the patient's condition with the family, and offered for them to be at bedside. The patient received 2 units of packed red blood cells prior to pronouncement. There were no objections from any staff member presents with regards to ceasing further attempts at resuscitation. This patient appeared to be extremely ill, with multiorgan system failure. There was suspicion for DIC, intra-abdominal bleeding as evidenced by significant and rapid drop in hemoglobin, and the patient had acute renal failure and significant hepatic impairment as evidenced by albumin of 1.1 and significantly elevated ALT. Despite the patient's young age, it was felt that sustained asystole and pulselessness indicated that further efforts at resuscitation would be futile. MONSERRAT MANNING MD Jun 23, 2016 20:09
[2016-06-23 20:11] LABS: ALANINE AMINOTRANSFERASE 3917 IU/L (13-69)
[2016-06-23 20:32] LABS: FIBRIN SPLIT PRODUCT >80 and <160 ug/ml (<10); PLATELET COUNT 13 10^3/UL (140-440)
[2016-06-23 20:34] LABS: D-DIMER > 10000.00 ng/ml (<460)
[2016-06-23 20:39] LABS: RETICULOCYTE COUNT % 2.8 % (0.5-1.5)
--- NOTE | 2016-06-23 21:05 | CONS ---
Date/Time of Note Date/Time of Note DATE: 06/23/16 TIME: 21:05 Assessment/Plan Assessment/Plan Chief Complaint/Hosp Course The patient is a 26 year old female with a history of Friedreich's ataxia, diabetes mellitus, transferred to [facility] post cardiac arrest with severe anemia and thrombocytopenia and hypotension/shock, likely septic - Peripheral smear reviewed by path and did not show evidence of schistocytes, therefore not TTP - Thrombocytopenia likely due to sepsis/DIC with consumption from bleeding - Severe anemia likely due to bleeding, either GI bleeding or possibly intraabdominal, although patient was not stable enough for CT evaluation. - Hypotension likely related to septic shock and hypovolemic shock from bleeding Update: New labs at 1800 revealed Hgb 1.3 and platelets of 13. Platelet and blood transfusions ordered, however unfortunately patient coded again and passed. Unfortunately, DIC panel, drawn stat, did not return until after the patient coded for a second time. DIC markedly abnormal with prolonged PT and PTT and undetectable fibrinogen. Problems: Consultation Date/Type/Reason Admit Date/Time Jun 22, 2016 at 22:21 Date of Consultation: Jun 23, 2016 Type of Consultation: Hematology Reason for Consultation Thrombocytopenia Hx of Present Illness The patient is a 26 year old female with a history of Friedreich's ataxia, diabetes mellitus, whose brother states that she started having a cough a few weeks ago, followed by back pain and left abdominal pain, then presented to [facility] after feeling "clammy" and subsequently vomiting Tuesday at 3 p.m. The patient was evaluated in the ER at [facility] where a CT was done that revealed small bilateral pleural effusions and small volume ascites. Creatinine was reportedly high at 2.3, white count 10.7, hemoglobin 15.3, platelet count 167. She was transferred to [facility] for insurance reasons. Early in the morning, she was found to be hypoglycemic and was acidotic with high potassium. At that point, the patient was given dextrose and transferred to intensive care unit for further management. The patient was intubated, and in the intensive care unit, she had a cardiac arrest in front of the staff, and CPR was conducted for 10 minutes and pulse was revived. However, the patient has remained hypotensive ever since and has been on 4 pressor support. She has blood-tinged secretions in the endotracheal tube concerning for GI bleeding. She appears very pale. Past Medical History Friedreich's ataxia Diabetes mellitus Family History Significant Family History: no pertinent family hx Social History Smoking Status: Never smoker Exam/Review of Systems Vital Signs Vitals Vital Signs Date Time Temp Pulse Resp B/P Pulse Ox O2 Delivery O2 Flow Rate FiO2 06/23/16 19:46 0 06/23/16 19:05 16 100 06/23/16 18:45 55/36 06/23/16 18:00 Mechanical Ventilator 06/23/16 16:00 96.3 06/23/16 13:00 95 06/23/16 08:30 10.0 Intake and Output 06/22/16 06/22/16 06/23/16 15:00 23:00 07:00 Output Total 0 ml Balance 0 ml Exam Patient intubated Unable to perform exam as patient was having a line placed by ICU staff Results Result Diagram: 06/23/16 1640 06/23/16 1640 Results 24 hrs Laboratory Tests Test 06/22/16 22:47 06/22/16 23:32 06/23/16 04:14 06/23/16 05:26 Bedside Glucose 56 L 144 42 *L 157 Test 06/23/16 05:59 06/23/16 07:49 06/23/16 08:29 06/23/16 09:05 White Blood Count 12.2 H Red Blood Count 4.96 Hemoglobin 15.5 Hematocrit 49.6 H Mean Corpuscular Volume 100.0 Mean Corpuscular Hemoglobin 31.3 Mean Corpuscular Hemoglobin Concent 31.3 L Red Cell Distribution Width 12.3 Platelet Count 25 *L Mean Platelet Volume 9.2 Neutrophils % 64.0 Band Neutrophils % 5.0 Lymphocytes % 18.0 Monocytes % 7.0 Eosinophils % Basophils % 1.0 Metamyelocytes % 4.0 H Myelocytes % 1.0 H Nucleated Red Blood Cells % 17.0 H Neutrophils # 7.8 H Lymphocytes # 2.2 Monocytes # 0.9 Eosinophils # Basophils # 0.1 Metamyelocytes # 0.5 Myelocytes # 0.1 Platelet Estimate PLT APPEAR DECREASED Giant Platelets RARE Polychromasia OCCASIONAL Sodium Level 130 L Potassium Level 6.9 *H Chloride Level 101 Carbon Dioxide Level 11 L Anion Gap 25 H Blood Urea Nitrogen 32 H Creatinine 3.45 H Glucose Level 156 Calcium Level 7.2 L Troponin I 0.488 *H Triglycerides Level 217 H Cholesterol Level 106 LDL Cholesterol, Calculated 53 HDL Cholesterol 10 L Cholesterol/HDL Ratio 10.6 Thyroid Stimulating Hormone (TSH) 12.800 H Thyroxine (T4) 6.5 Total Triiodothyronine 0.89 L Bedside Glucose 128 Blood Gas Specimen Source Blood arterial Blood arterial Arterial Blood Date Drawn 06/23/2016 8:20:03 AM 06/23/2016 10:20:20 AM Arterial Blood pH (Temp corrected) 7.238 *L 7.137 *L Arterial Blood pCO2 (Temp correct) 16.5 L 41.1 Arterial Blood pO2 (Temp corrected) 325.1 H 97.0 Arterial Blood HCO3 6.9 *L 13.6 L Arterial Blood Base Excess -18.1 L -14.7 L Arterial Blood Oxygen Saturation 99.4 H 94.3 L Zoran Test ACCEPTAB ACCEPTAB Arterial Blood Gas Puncture Site Right Radial Right Radial Arterial Blood Carboxyhemoglobin 0.3 0.2 Arterial Blood Methemoglobin 0.3 0.3 Blood Gas A-a O2 Differential 371.4 H 574.9 H Oxyhemoglobin Percent 98.8 93.8 Total Hemoglobin 13.2 10.6 L Blood Gas Temperature 37.0 37.0 Blood Gas Modality MASK - NRB VENT - AC FiO2 100.0 100.0 Blood Gas Critical Value Read Back E LURDES BRINK RN Blood Gas Notified Whom DEEPA ARENAS Blood Gas Notified Time 06/23/2016 8:32:39 AM 06/23/2016 10:40:34 AM Blood Gas Respiration Rate 16.0 Blood Gas Actual Respiration Rate 16 Blood Gas Tidal Volume 500.0 Blood Gas Low PEEP Setting 5.0 Test 06/23/16 09:58 06/23/16 10:08 06/23/16 10:09 06/23/16 12:46 Bedside Glucose 173 174 White Blood Count 5.8 # Red Blood Count 3.16 #L Hemoglobin 9.9 #L Hematocrit 32.8 #L Mean Corpuscular Volume 103.8 H Mean Corpuscular Hemoglobin 31.3 Mean Corpuscular Hemoglobin Concent 30.2 L Red Cell Distribution Width 12.4 Platelet Count 21 *L Mean Platelet Volume 9.9 Neutrophils % 57.0 Band Neutrophils % 12.0 H Lymphocytes % 22.0 Monocytes % 1.0 Eosinophils % Metamyelocytes % 6.0 H Myelocytes % 2.0 H Nucleated Red Blood Cells % 11.0 H Neutrophils # 3.3 Lymphocytes # 1.3 Monocytes # 0.1 L Eosinophils # Metamyelocytes # 0.3 Myelocytes # 0.1 Lactic Acid Level 15.7 *H Creatine Kinase 253 H Creatine Kinase Index 1.4 Creatinine Kinase MB (Mass) 3.62 H Troponin I 0.324 *H Sodium Level 139 Potassium Level 6.8 *H Chloride Level 103 Carbon Dioxide Level 15 L Anion Gap 28 H Blood Urea Nitrogen 32 H Creatinine 3.43 H Glucose Level 148 Calcium Level 8.3 L Total Bilirubin 1.3 Direct Bilirubin 0.20 Indirect Bilirubin 1.1 Aspartate Amino Transf (AST/SGOT) Alanine Aminotransferase (ALT/SGPT) 6978 H Alkaline Phosphatase 94 Total Protein 3.5 L Albumin 1.6 L Globulin 1.90 Albumin/Globulin Ratio 0.84 Test 06/23/16 14:20 06/23/16 14:26 06/23/16 14:27 06/23/16 16:40 Potassium Level 5.5 H 7.0 *H Troponin I 0.874 *H Bedside Glucose 449 *H 352 H White Blood Count 2.9 #L Red Blood Count 0.41 #L Hemoglobin 1.3 #*L Hematocrit 5.3 #L Mean Corpuscular Volume 129.3 #H Mean Corpuscular Hemoglobin 31.7 Mean Corpuscular Hemoglobin Concent 24.5 L Red Cell Distribution Width 14.4 Platelet Count 13 *L Mean Platelet Volume 10.9 H Neutrophils % Lymphocytes % Monocytes % Eosinophils % Neutrophils # Lymphocytes # Monocytes # Eosinophils # Absolute Reticulocyte Count 0.011 L Percent Reticulocyte Count 2.8 H Prothrombin Time > 100.0 H Prothrombin Time Ratio > 6.0 INR International Normalized Ratio > 6.00 *H Activated Partial Thromboplast Time > 180.0 *H Thrombin Time > 100.0 H Fibrinogen < 40.0 L Plasma Fibrin Degradation Products >80 and <160 H D-Dimer > 96300.00 H Sodium Level 141 Chloride Level 105 Carbon Dioxide Level 9 #*L Anion Gap 34 H Blood Urea Nitrogen 26 H Creatinine 3.23 H Glucose Level 279 #H Calcium Level 6.6 L Total Bilirubin 0.5 Direct Bilirubin 0.00 # Indirect Bilirubin 0.5 Aspartate Amino Transf (AST/SGOT) > 7500 H Alanine Aminotransferase (ALT/SGPT) 3917 H Alkaline Phosphatase 56 Lactate Dehydrogenase 31081 H Total Protein 2.1 #L Albumin 1.1 L Globulin 1.00 L Albumin/Globulin Ratio 1.10 Test 06/23/16 17:15 06/23/16 17:17 06/23/16 18:15 Bedside Glucose 511 *H 472 *H 324 H Troponin I 1.560 *H Medications Medications Current Medications Morphine Sulfate (morphine) 4 mg Q4H PRN IV PAIN; Start 06/23/16 at 01:00 Ondansetron HCl (Zofran Inj) 4 mg Q6H PRN IV NAUSEA AND/OR VOMITING; Start 02/27 at 01:00 Pantoprazole (Protonix Iv) 40 mg DAILY@06 IV Last administered on 06/23/16 06: 19; Admin Dose 40 MG; Start 06/23/16 at 06:00 Dextrose (D50w Syringe) 50 ml PRN PRN IV hypoglycemia; Start 06/23/16 at 06:00 Sodium Bicarbonate 50 ml 50 ml BID IV Last administered on 06/23/16 10:46; Admin Dose 50 ML; Start 06/23/16 at 09:00; Stop 06/24/16 at 09:01 Sodium Bicarbonate 100 meq/Dextrose/ Sodium Chloride 1,100 ml @ 200 mls/hr Q5H30M IV Last administered on 06/23/16 18:01; Admin Dose 200 MLS/HR; Start at 10:00 Midazolam HCl (Versed) 50 ml @ 1 mls/hr TITRATE IV ; Start 06/23/16 at 09:30 Acetaminophen (Tylenol Tab) 650 mg Q6H PRN PO PAIN LEVEL 1-3 OR FEVER; Start at 09:30 Docusate Sodium 100 mg 100 mg Q12H PRN PO CONSTIPATION; Start 06/23/16 at 09:30 Ceftriaxone Sodium (Rocephin) 50 ml @ 100 mls/hr Q24H IVPB Last administered on 06/23/16 11:27; Admin Dose 100 MLS/HR; Start 06/23/16 at 10:00 Levothyroxine Sodium (Synthroid) 25 mcg DAILY@06 PO Last administered on 14:39; Admin Dose 25 MCG; Start 06/23/16 at 11:00 Hydrocortisone 100 mg 100 mg Q8 IV Last administered on 06/23/16 16:19; Admin Dose 100 MG; Start 06/23/16 at 10:00 Vasopressin/ Dextrose (Vasostrict/D5W) 60 ml @ 0 mls/hr Q12H IV Last administered on 06/23/16 11:02; Admin Dose 0 MLS/HR; Start 06/23/16 at 10:30 Sodium Polystyrene Sulfonate (Kayexalate) 30 gm Q4H PO Last administered on 16:18; Admin Dose 30 GM; Start 06/23/16 at 16:00; Stop 06/24/16 at 00:01 Diagnostic Test (Pha) 1 ea 1 ea Q4 XX Last administered on 06/23/16 12:46; Admin Dose 1 EA; Start 06/23/16 at 13:00 Norepinephrine 32 mg/Dextrose 250 ml @ 0.46 mls/hr TITRATE IV ; Start 06/23/16 at 17:30 Phenylephrine HCl 80 mg/Dextrose 250 ml @ 0 mls/hr TITRATE IV ; Start 06/23/16 at 17:30 Dopamine HCl/ Dextrose (D5W) 250 ml @ 0 mls/hr TITRATE IV ; Start 06/23/16 at 17 :30 Diagnostic Test (Pha) (Accu-Chek) 1 ea Q1H XX ; Start 06/23/16 at 17:30 Dextrose (D50w Syringe) 25 ml Q15M PRN IV Till BS 80 mg/dL or above x2; Start 06/23/16 at 17:30 Dextrose (D50w Syringe) 50 ml Q15M PRN IV Till BS 80 mg/dL or above x2; Start 06/23/16 at 17:30 CHAN ANGELO MD Jun 23, 2016 21:05 Start 06/23/16 at 17:30 Dextrose (D50w Syringe) 50 ml Q15M PRN IV Till BS 80 mg/dL or above x2; Start 06/23/16 at 17:30 CHAN ANGELO MD Jun 23, 2016 21:05
[2016-06-23 22:45] LABS: LYMPHOCYTES # 0.6 10^3/ul (0.8-2.9); MONOCYTE # 0.1 10^3/ul (0.3-0.9)
[2016-06-23 22:46] LABS: ANISOCYTOSIS OCCASIONAL
[2016-06-23 22:47] LABS: BURR CELLS RARE; MICROCYTOSIS RARE; PLATELET ESTIMATE PLT APPEAR DECREASED
[2016-06-24] MEDS ORDERED: PANTOPRAZOLE 40 MG INJ IV SCH (06:00)
--- NOTE | 2016-06-24 12:42 | QN ---
Documentation Comment [id number] BREE GARCIA MD Jun 24, 2016 12:42
--- NOTE | 2016-06-24 13:48 | DES ---
DATE OF ADMISSION: 06/22/2016 DATE OF : 06/23/2016 HOSPITAL COURSE: Verna Bocanegra is 26-year-old unfortunate female who was transferred from [facility]. The patient initially presented to [facility] with abdominal pain. Multiple studies done of the abdominal area were negative at the time of admission to [facility]. The patient also noted to have dehydration at [facility]. The patient's initial diagnoses include, patient has history of Friedreich's ataxia, history of diabetes mellitus, history of proteinuria, history of underlying CKD per family. The patient also has some blood in the urine due to Garcia trauma. The patient was transferred here, since the patient was noted to be stable at the transferring hospital by the transferring team. The patient presented, was doing fine, early in the morning, noted to have episodes of hypoglycemia. The patient received IV fluid and then later on the lab came back, the patient has hyperkalemia and metabolic acidosis. The patient was immediately transferred to ICU to give this patient IV fluid, sodium bicarbonate, Kayexalate, D50 as well as calcium gluconate and breathing treatment. While in ICU, the patient was noted to have respiratory failure. I called Dr. Rome from the ER, to come in and intubate the patient. The patient was immediately intubated. The patient was started on IV fluid. The patient also was noted to have hypotension and received IV fluid, sodium bicarbonate IV, Kayexalate were ordered. Calcium gluconate was given. The patient also was ordered to noted to have Plasmanate and pressors were started. Also consultation from Dr. Dee was requested since the patient had elevated liver function test, as well as cardiology consultation from Dr. Baez was obtained and pulmonary consultation from Dr. Holder. The patient was noted to have thrombocytopenia and Dr. ANGELO was called to see this patient in consultation. 'The patient hemodynamically became unstable within a few hours and then later on in the afternoon I received a call from patient's loader operator/ground leader from [facility] that echocardiogram done there shows the patient has left ventricular thrombus, which was relayed to Dr. Constantine Baez from [facility], who recommended in view of patient's hemodynamic instability, no anticoagulation. The patient had a rough course with persistent hypotension, lactic acidosis, electrolyte imbalance and the patient could not be revived. The family was informed. The patient's brother was constantly given all the information by me about the patient's underlying condition. The patient . AT THE TIME OF , DIAGNOSES INCLUDE: 1. Cardiorespiratory arrest. 2. The patient has left ventricular thrombus, by report, possible showering of the thrombus to the rest of the body. 3. Lactic acidosis. 4. Renal failure. 5. Hyperkalemia. 6. Metabolic acidosis. 7. Sepsis. 8. Ventilator-dependent respiratory failure. 9. Friedreich's ataxia. 10. Multiorgan failure. 11. Elevated troponin. 12. Episodes of hypoglycemia and hyperglycemia. The patient eventually . Dictated By: BREE KIRK/YOSEPH Conf#: [id number] DID#: [id number]
[2016-06-25 17:19] LABS: WHITE BLOOD COUNT 2.9 10^3/ul (4.8-10.8)
[2016-06-25 17:21] LABS: HEMOGLOBIN 1.3 g/dl (12.0-16.0); PLATELET COUNT 13 10^3/UL (140-415)
--- NOTE | 2016-06-25 20:52 | RADRPT ---
Vent Rate: 129 bpm RR Interval: 0 msec [place] Interval: 150 msec QRS Duration: 82 msec QT Interval: 296 msec QTC Interval: 433 msec P-R-T [place]: 66 - 140 - 7 degrees Sinus tachycardia Right axis deviation Possible Right ventricular hypertrophy Abnormal ECG Electronically Signed By: Tello Wang [id number]
== END 2016-06-23 19:46 | disposition expired | DRG 871 ==
LOC: MS4 22:21 → ICU 06-23 08:10
PROVIDERS: ADMIT Internal Medicine Nephrology; ATTEND Internal Medicine Nephrology
PROC: 5A1935Z Respiratory Ventilation, Less than 24 Consecutive Hours (ICD-10-PCS; principal; 2016-06-22)
PROC: 0BH17EZ Insertion of Endotracheal Airway into Trachea, Via Natural or Artificial Opening (ICD-10-PCS; 2016-06-22)
PROC: 30233N1 Transfusion of Nonautologous Red Blood Cells into Peripheral Vein, Percutaneous Approach (ICD-10-PCS; 2016-06-23)
DX: A41.9 Sepsis, unspecified organism (principal); J96.00 Acute respiratory failure, unspecified whether with hypoxia or hypercapnia; D65 Disseminated intravascular coagulation [defibrination syndrome]; K72.00 Acute and subacute hepatic failure without coma; R65.21 Severe sepsis with septic shock; E87.2 Acidosis; G11.1 Early-onset cerebellar ataxia; N17.9 Acute kidney failure, unspecified; E87.5 Hyperkalemia; I49.9 Cardiac arrhythmia, unspecified; E11.65 Type 2 diabetes mellitus with hyperglycemia; E13.65 Other specified diabetes mellitus with hyperglycemia; E13.649 Other specified diabetes mellitus with hypoglycemia without coma; I46.9 Cardiac arrest, cause unspecified
CPT/HCPCS: 31500; 36430; 36600; 71010; 76700; 80048; 80053; 80061; 82550; 82553; 82803; 82962; 83010; 83605; 83615; 84132; 84436; 84443; 84480; 84484; 85025; 85045; 85049; 85362; 85378; 85384; 85610; 85670; 85730; 86850; 86900; 86901; 86920; 87081; 92950; 93005; 93306; 94002; 94770; C9113; J0171; J0610; J0696; J1265; J1720; J1815; J2370; J7030; J7040; J7042; J7060; J7070; P9016; P9045